=== PATIENT | male | born 1955 | race African-American/Black ===

== ENCOUNTER 2022-04-15 20:18 | Inpatient (IN) | payer MEDICARE ==
[2022-04-15] MEDS ORDERED: Tranexamic Acid 1,000 MG/10 ML VIAL ONE ×2 (22:11→22:13)
[2022-04-15 22:24] LABS: #Lymphocytes 1.1 thou/uL (1.20-3.40); #Monocytes 0.2 thou/uL (0.11-0.59); #Neutrophils 3.7 thou/uL (1.40-6.50); %Basophils 0.7 % (0.0-1.0); %Eosinophils 0.7 % (0.0-10.0); %Lymphocytes 22.1 % (21.0-51.0); %Monocytes 4.2 % (0.0-10.0); %Neutrophils 72.3 % (42.0-75.0); Hemoglobin 12.2 g/dL (14.0-18.0); Mean Corpuscular HGB CONC 32.1 g/dL (32.0-36.0); Mean Corpuscular Hemoglobin 30.2 pg (27.0-31.0); Mean Corpuscular Volume 93.8 fL (78.0-98.0); Mean Platelet Volume 9.1 fL (7.4-10.4); Platelet Count 130 thou/uL (130-400); RBC Distribution Width 12.5 % (11.5-14.5); Red Blood Cell (RBC) Count 4.06 mill/uL (4.70-6.10); White Blood Cell (WBC) Count 5.2 thou/uL (4.8-10.8)
[2022-04-15 22:43] LABS: ALT (SGPT) 7 U/L (8-55); AST (SGOT) 18 U/L (5-34); Alkaline Phosphatase 81 U/L (40-110); Anion Gap 14 mmol/L (10-20); BUN (Urea Nitrogen) 18 mg/dL (8.4-25.7); Bilirubin, Total 0.5 mg/dL (0.2-1.2); Calc. Creatinine Clearance 0 mL/min (70-130); Calcium 9.8 mg/dL (7.8-10.44); Carbon Dioxide 24 mmol/L (23-31); Chloride 103 mmol/L (98-107); Estimated GFR 71; Glucose 104 mg/dL (80-115); Potassium 4.4 mmol/L (3.5-5.1); Sodium 137 mmol/L (136-145)
[2022-04-16] MEDS ORDERED: Sodium Chloride 0.9% 1,000 ML IV SCH (01:45)
[2022-04-16] MEDS ORDERED: Morphine 2 MG/ML VIAL SLOW IVP SCH (05:30)
[2022-04-16 06:40] LABS: #Lymphocytes 0.7 thou/uL (1.20-3.40); #Monocytes 0.2 thou/uL (0.11-0.59); #Neutrophils 3.6 thou/uL (1.40-6.50); %Basophils 0.7 % (0.0-1.0); %Eosinophils 0.1 % (0.0-10.0); %Monocytes 3.9 % (0.0-10.0); %Neutrophils 79.3 % (42.0-75.0); Hemoglobin 11.3 g/dL (14.0-18.0); Mean Corpuscular HGB CONC 33.2 g/dL (32.0-36.0); Mean Corpuscular Hemoglobin 30.9 pg (27.0-31.0); Mean Corpuscular Volume 93.1 fL (78.0-98.0); Mean Platelet Volume 9.3 fL (7.4-10.4); Platelet Count 126 thou/uL (130-400); RBC Distribution Width 12.3 % (11.5-14.5); Red Blood Cell (RBC) Count 3.67 mill/uL (4.70-6.10); White Blood Cell (WBC) Count 4.5 thou/uL (4.8-10.8)
[2022-04-16 07:02] LABS: Anion Gap 16 mmol/L (10-20); BUN (Urea Nitrogen) 18 mg/dL (8.4-25.7); Calc. Creatinine Clearance 64 mL/min (70-130); Calcium 9.5 mg/dL (7.8-10.44); Carbon Dioxide 22 mmol/L (23-31); Chloride 105 mmol/L (98-107); Estimated GFR 74; Glucose 115 mg/dL (80-115); Potassium 4.5 mmol/L (3.5-5.1); Sodium 138 mmol/L (136-145)
[2022-04-16] MEDS ORDERED: Acetaminophen 325 MG TAB PO PRN (09:58)
[2022-04-16] MEDS ORDERED: Benzonatate 100 MG CAP PO PRN (09:58)
[2022-04-16] MEDS ORDERED: Ondansetron ODT 4 MG TAB PO PRN (09:58)
[2022-04-16] MEDS ORDERED: hydrALAZINE 20 MG/ML VIAL SLOW IVP PRN (10:01)
[2022-04-16] MEDS ORDERED: Lisinopril 20 MG TAB PO SCH (10:15)
[2022-04-16] MEDS: Nicotine 21 MG PATCH TD SCH (10:24)
[2022-04-16] MEDS: HYDROcodone/Acetaminophen 5/325 mg Tablet PO PRN ×2 (15:07→19:36)
[2022-04-16] MEDS: Tamsulosin HCl 0.4 MG CAP PO SCH (18:09)
[2022-04-16] MEDS: Zolpidem Tartrate 5 MG TAB PO PRN (22:10)
[2022-04-17 07:20] LABS: #Basophils 0.1 thou/uL (0.0-0.2); #Monocytes 0.4 thou/uL (0.11-0.59); #Neutrophils 3.6 thou/uL (1.40-6.50); %Basophils 0.7 % (0.0-1.0); %Eosinophils 0.4 % (0.0-10.0); %Lymphocytes 49.1 % (21.0-51.0); %Monocytes 5.3 % (0.0-10.0); %Neutrophils 44.4 % (42.0-75.0); Hemoglobin 11.9 g/dL (14.0-18.0); Mean Corpuscular HGB CONC 32.1 g/dL (32.0-36.0); Mean Corpuscular Hemoglobin 30.2 pg (27.0-31.0); Mean Corpuscular Volume 94.2 fL (78.0-98.0); Mean Platelet Volume 8.9 fL (7.4-10.4); Platelet Count 149 thou/uL (130-400); RBC Distribution Width 12.5 % (11.5-14.5); Red Blood Cell (RBC) Count 3.95 mill/uL (4.70-6.10); White Blood Cell (WBC) Count 8.1 thou/uL (4.8-10.8)
[2022-04-17 07:27] VITALS: BMI 19.8
[2022-04-17 07:39] LABS: Anion Gap 12 mmol/L (10-20); BUN (Urea Nitrogen) 14 mg/dL (8.4-25.7); Calc. Creatinine Clearance 63 mL/min (70-130); Calcium 9.3 mg/dL (7.8-10.44); Carbon Dioxide 27 mmol/L (23-31); Chloride 106 mmol/L (98-107); Estimated GFR 71; Glucose 85 mg/dL (80-115); Potassium 3.5 mmol/L (3.5-5.1); Sodium 141 mmol/L (136-145)
[2022-04-17] MEDS: HYDROcodone/Acetaminophen 5/325 mg Tablet PO PRN ×2 (07:42→19:34)
[2022-04-17] MEDS: Lisinopril 20 MG TAB PO SCH (07:42)
[2022-04-17] MEDS: Enoxaparin Sodium 40 MG/0.4 ML SYRINGE SC SCH (07:42)
[2022-04-17] MEDS: Clopidogrel Bisulfate 75 MG TAB PO SCH (08:11)
[2022-04-17] MEDS: Aspirin 81 mg Enteric Coated Tablet PO SCH (08:11)
[2022-04-17] MEDS: Nicotine 21 MG PATCH TD SCH (10:32)
[2022-04-17] MEDS: Tamsulosin HCl 0.4 MG CAP PO SCH (17:42)
[2022-04-17] MEDS: Zolpidem Tartrate 5 MG TAB PO PRN (21:03)
[2022-04-18] MEDS: HYDROcodone/Acetaminophen 5/325 mg Tablet PO PRN ×4 (06:15→21:08)
[2022-04-18] MEDS: Enoxaparin Sodium 40 MG/0.4 ML SYRINGE SC SCH (08:18)
[2022-04-18] MEDS: Amlodipine 5 MG TAB PO SCH (08:18)
[2022-04-18] MEDS: Clopidogrel Bisulfate 75 MG TAB PO SCH (08:18)
[2022-04-18] MEDS: Aspirin 81 mg Enteric Coated Tablet PO SCH (08:19)
[2022-04-18] MEDS: Lisinopril 20 MG TAB PO SCH (08:19)
[2022-04-18] MEDS: Nicotine 21 MG PATCH TD SCH (10:18)
[2022-04-18] MEDS: Lactated Ringer's 1,000 ML IV SCH (16:27)
[2022-04-18] MEDS: Tamsulosin HCl 0.4 MG CAP PO SCH (17:38)
[2022-04-19] MEDS ORDERED: Morphine 2 MG/ML VIAL SLOW IVP SCH ×2 (01:45→18:30)
[2022-04-19] MEDS: Lactated Ringer's 1,000 ML IV SCH ×2 (06:20→20:53)
[2022-04-19] MEDS: Aspirin 81 mg Enteric Coated Tablet PO SCH (07:18)
[2022-04-19] MEDS: Clopidogrel Bisulfate 75 MG TAB PO SCH (07:19)
[2022-04-19] MEDS: Enoxaparin Sodium 40 MG/0.4 ML SYRINGE SC SCH (07:19)
[2022-04-19] MEDS ORDERED: Lidocaine 1% w/Epinephrine 1:100K 20 ML VIAL ONE (10:33)
[2022-04-19] MEDS ORDERED: EPINEPHrine 1 MG/ML AMP ONE (10:33)
[2022-04-19] MEDS ORDERED: Famotidine/PF 20 mg/2ml Vial ONE (10:48)
[2022-04-19] MEDS ORDERED: fentaNYL Citrate/PF 100 MCG/2 ML SYRINGE ONE (10:48)
[2022-04-19] MEDS ORDERED: PROPOFOL 60 ML ONE (10:48)
[2022-04-19] MEDS: Amlodipine 5 MG TAB PO SCH (10:49)
[2022-04-19] MEDS: Lisinopril 20 MG TAB PO SCH (10:49)
[2022-04-19] MEDS ORDERED: Lidocaine 1% PF 5 ML VIAL ONE (11:07)
[2022-04-19] MEDS ORDERED: Ondansetron PF 4 MG/2 ML Vial ONE (11:07)
[2022-04-19] MEDS ORDERED: Dexamethasone 20 MG/5 ML VIAL ONE (11:07)
[2022-04-19] MEDS ORDERED: ePHEDrine 50 MG/ML VIAL ONE (11:07)
[2022-04-19] MEDS ORDERED: PROPOFOL 200 MG/20 ML VIAL ONE (11:07)
[2022-04-19] MEDS ORDERED: Succinylcholine 200 MG/10 ml SYRINGE FS ONE (11:07)
[2022-04-19] MEDS ORDERED: Metoclopramide HCl 10 MG/2 ML VIAL ONE (11:07)
[2022-04-19] MEDS ORDERED: Ketorolac Tromethamine 30 MG/ML VIAL IVP PRN (11:57)
[2022-04-19] MEDS ORDERED: Promethazine HCl 25 MG/ML VIAL IM PRN (11:57)
[2022-04-19] MEDS ORDERED: Ondansetron HCl/PF 4 MG/2 ML Vial IVP PRN (11:57)
[2022-04-19] MEDS ORDERED: Promethazine HCl 25 MG/ML VIAL IVPB PRN (11:57)
[2022-04-19] MEDS ORDERED: Ketorolac Tromethamine 30 MG/ML VIAL ONE (12:05)
[2022-04-19] MEDS ORDERED: Fentanyl 100 MCG/2 ML VIAL ONE (12:39)
[2022-04-19] MEDS: Nicotine 21 MG PATCH TD SCH (14:18)
[2022-04-19] MEDS: Tamsulosin HCl 0.4 MG CAP PO SCH (17:17)
[2022-04-20] MEDS: HYDROcodone/Acetaminophen 5/325 mg Tablet PO PRN ×2 (07:03→11:04)
[2022-04-20] MEDS: Enoxaparin Sodium 40 MG/0.4 ML SYRINGE SC SCH (08:35)
[2022-04-20] MEDS: Aspirin 81 mg Enteric Coated Tablet PO SCH (08:36)
[2022-04-20] MEDS: Clopidogrel Bisulfate 75 MG TAB PO SCH (08:36)
[2022-04-20] MEDS: Lisinopril 20 MG TAB PO SCH (08:36)
[2022-04-20] MEDS: Amlodipine 5 MG TAB PO SCH (08:37)
[2022-04-20] MEDS: Nicotine 21 MG PATCH TD SCH (11:05)
[2022-04-20] MEDS: Lactated Ringer's 1,000 ML IV SCH (11:05)
[2022-04-20 13:52] VITALS: BP 125/75; TEMP 97.2
== END 2022-04-20 14:13 | disposition home or self-care (01) | DRG 147 ==
LOC: ERS 20:18 → T4-B 23:16 → OBSVTOIN 04-19 13:04
PROVIDERS: ADMIT Internal Medicine; ATTEND Internal Medicine
PROC: 0CBR8ZX Excision of Epiglottis, Via Natural or Artificial Opening Endoscopic, Diagnostic (ICD-10-PCS; principal; 2022-04-15)
DX: C32.1 Malignant neoplasm of supraglottis (principal); R04.2 Hemoptysis; Z20.822 Contact with and (suspected) exposure to COVID-19; Z23 Encounter for immunization; I10 Essential (primary) hypertension; I25.10 Atherosclerotic heart disease of native coronary artery without angina pectoris; F17.210 Nicotine dependence, cigarettes, uncomplicated; Z95.5 Presence of coronary angioplasty implant and graft; Z86.73 Personal history of transient ischemic attack (TIA), and cerebral infarction without residual deficits
CPT/HCPCS: 36415; 80048; 80053; 85025; 86850; 86900; 86901; 88305; 88331; 96361; 96365; 96372; 96375; 96376; G0378; J0171; J0360; J1100; J1650; J1885; J2270; J2405; J2704; J2765; J3010; J3490; J7050; J7120; S0028